=== PATIENT | male | born 2000 | race Two or more races ===

== ENCOUNTER 2024-02-02 12:24 | Emergency (ER) | payer MEDICAID, SELFPAY ==
--- NOTE | 2024-02-02 | XR_ITS ---
Exam: MRI knee without contrast, right complete Date and time of exam: February 02, 2024 at 1704 hrs. Indications: Injury to the knee today, patient felt a pop in the followed by instability pain unable to bear weight Technique: Multiple axial, coronal, and sagittal sections on the knee have been obtained. T2-Weighted sagittal, fat-suppressed images, TR 3,500, TE 62, T2 weighted coronal fat-saturated images, TR 3,500, TE 62 Proton density sagittal sections, TR 1800, TE 31. T-1 weighted coronal images, TR 524, TE 13.0 Findings: Medial meniscus anterior horn intact. Medial meniscus, body is intact. Posterior horn medial meniscus intact. Lateral meniscus anterior horn is intact Lateral meniscus, body is intact Posterior horn lateral meniscus is intact Anterior cruciate ligament high-grade sprain Posterior cruciate ligament appears intact. Knee effusion is significant. There is complete tear of the medial patellar retinaculum with lateral subluxation of the patella. There is a moderate strain of the patellar tendon There is fracture of Hoffa's fat pad Medial patellar facet demonstrates no thinning. Lateral patellar facet cartilage demonstrates no thinning. Trochlear cartilage demonstrates no thinning. Marrow signal abnormal, bone contusion anterior lateral femoral condyle likely related to more complete patellar dislocation. Medial collateral ligament appears intact. No meniscocapsular separation is seen. Illiotibial band and fibular collateral ligament are intact. Biceps femoris tendons appear intact. Medial femoral condylar articular cartilage demonstrates no thinning. Lateral femoral condylar articular cartilage demonstratesno thinning. Tibial plateau cartilage demonstrates no thinning. Impression: High-grade sprain anterior cruciate ligament Complete tear medial patellar retinaculum with lateral subluxation of the patella Traumatic fracture through Hoffa's fat pad, not a bone fracture Moderate strain patellar tendon
[2024-02-02 12:54] VITALS: BP 171/84; PULSE 75; RESP 18; TEMP 36.8; O2SAT 99; BMI 35.9
--- NOTE | 2024-02-02 13:02 | XR_ITS ---
Examination: Knee, right , 3 views Technique: Knee AP, lateral, oblique 3 views Date and time of exam: February 02, 2024 1305 hrs. Indications: Injury to the knee today, knee pain. Findings: No acute fracture No dislocation No foreign body Impression: No acute fracture
[2024-02-02] MEDS: IBUPROFEN TAB 600 MG TABLET PO (13:12)
[2024-02-02] MEDS: HYDROcodone/APAP 5/325 TABLET 1 TAB PO (13:12)
--- NOTE | 2024-02-02 14:37 | PD.EDLOWEX ---
Lower Extremity Injury RME/HPI General Chief Complaint: Extremity Injury, Lower Stated Complaint: RIGHT KNEE INJURY Time Seen by Provider: 02/02/24 12:25 Arrival date/time: 02/02/24 12:24 23-year-old male presents emergency department complaint of right knee pain while playing soccer Limitations: no limitations Related Data Previous Rx's ?Medication ?Instructions ?Recorded ibuprofen 600 mg tablet 600 mg PO QID #30 tabs 09/08/19 ibuprofen 800 mg tablet 800 mg PO TID PRN pain #30 tabs 02/02/24 Allergies Allergy/AdvReac Type Severity Reaction Status Date / Time NKA Allergy Unknown Uncoded 02/02/24 12:26 Review of Systems Review of Systems Systems Reviewed: All systems reviewed, normal except as documented Constitutional Constitutional: Reports system reviewed and no additional complaints, except as documented, Denies fever(s) and Denies headache(s) Eyes Eyes: Reports system reviewed and no additional complaints, except as documented and Denies blurry vision ENT Ears, Nose, Mouth, and Throat: Reports system reviewed and no additional complaints, except as documented, Denies headache(s), Denies nasal congestion and Denies nasal discharge Cardiovascular Cardiovascular: Reports system reviewed and no additional complaints, except as documented, Denies chest pain and Denies dyspnea Respiratory Respiratory: Reports system reviewed and no additional complaints, except as documented, Denies chest congestion, Denies cough and Denies dyspnea Gastrointestinal Gastrointestinal: Reports system reviewed and no additional complaints, except as documented and Denies abdominal pain Integumentary/Breasts Skin/Breast: Reports system reviewed and no additional complaints, except as documented and Denies rash Neurologic Neurologic: Reports system reviewed and no additional complaints, except as documented, Reports as per HPI and Denies headache(s) Past Medical History Past Medical History RESPIRATORY: Negative Respiratory Disorders Social History SMOKING STATUS: Current every day smoker ED Exam General Limitations: Present no limitations General appearance: Present alert and in no apparent distress Head Head exam: Present atraumatic Eye Eye exam: Present normal appearance, PERRL and EOMI ENT ENT exam: Present normal exam, normal oropharynx and mucous membranes moist Neck Neck exam: Present normal inspection, full ROM and trachea midline Chest Chest inspection: Present normal inspection and symmetric chest wall rise Respiratory Respiratory exam: Present normal lung sounds bilaterally Cardiovascular Cardiovascular exam: Present regular rate, normal rhythm and normal heart sounds Abdominal Exam Abdominal exam: Present soft and normal bowel sounds Extremities Exam Extremities exam: Present tenderness, normal capillary refill and joint swelling; Absent pedal edema or calf tenderness Back Exam Back exam: Present normal inspection and full ROM Neurological Exam Neurological exam: Present alert, oriented X3 and CN II-XII intact Psychiatric Psychiatric exam: Present normal affect and normal mood Skin Skin exam: Present warm, dry, intact and normal color Course Quality Measures none Orders Category Date Time Status Crutches .NOW Care 02/02/24 14:37 Completed MRI Screening NOW Care 02/02/24 14:42 Completed osmar wrap [Splint / Immobilizer] STAT Care 02/02/24 14:37 Completed MR knee RT wo con Stat Exams 02/02/24 Completed XR knee RT 3V Stat Exams 02/02/24 13:02 Completed HYDROcodone*/APAP 5/325 [[place] 5/325] Med 02/02/24 12:52 Discontinued 1 tab PO X1 ONE Ibuprofen Tab [Motrin Tab] Med 02/02/24 12:52 Discontinued 600 mg PO X1 ONE Vital Signs Vital signs: Vital Signs Temperature 98.3 F 02/02/24 12:54 Pulse Rate 75 02/02/24 12:54 Respiratory Rate 18 02/02/24 12:54 Blood Pressure 171/84 H 02/02/24 12:54 Pulse Oximetry (%) 99 02/02/24 12:54 Oxygen Delivery Method Room Air 02/02/24 12:54 O2 saturation 9 9% room air within normal limits Extremity Injury, Lower MDM Narrative MDM Narrative:: 23-year-old male presents emergency department complaint of right knee pain while playing soccer On exam patient has tenderness, swelling, decreased range of motion of the knee X-ray of the right knee obtained MRI of the knee obtained Patient given pain medication given crutches and Osmar wrap Patient instructed to bring his MRI to his primary care doctor for referral to a specialist for worsening symptoms to return immediately Patient data External records reviewed:: [facility] previous records Clinical information provided by:: patient Social determinants that could affect healthcare access:: none Patient has the following chronic illnesses:: None How is presenting disease/condition affected by chronic disease/condition?: no chronic disease Evaluation data The following diagnostics were reviewed and interpreted by me:: radiology exam(s) Lab and/or radiology exams considered but not ordered:: Radiology obtain Interpretation Summary: Reviewed by me Medications / Prescriptions Medications or Prescriptions considered but not ordered:: Given Medication administrations:: Medication Administration History Discontinued Medications Hydrocodone Bitart/Acetaminophen (Hydrocodone/Apap 5/325 Tablet) 1 tab PO X1 ONE Stop: 02/02/24 12:53 Last Admin: 02/02/24 13:12 Dose: 1 tab Documented By: OA Ibuprofen (Ibuprofen Tab 600 Mg Tablet) 600 mg PO X1 ONE Stop: 02/02/24 12:53 Last Admin: 02/02/24 13:12 Dose: 600 mg Documented By: OA Given Consultations Consultation(s) initiated? (list below): No Diagnosis Extremity Injury, Lower Differential Diagnosis: acute internal derangement of knee and other (Knee sprain, knee fracture) Most likely diagnosis given after review of the tests above:: Knee sprain Admission Indicated Admission indicated?: not indicated Admission Request Was there a request for admission?: No Disposition Plan Disposition Plan: Discharge Discharge Attestation Discharge Attestation: The patient and all family members were given an opportunity to ask questions and understood the discharge instructions. Discharge instructions specifically effects, indications for sooner follow up or return to the emergency department, and the expected course of current diagnosis. Patient condition: Stable Discharge Plan Plan Patient Disposition: HOME (Self Care) Disposition Comment: Stable Prescriptions/Referrals Prescriptions/Med Rec: New ibuprofen 800 mg tablet 800 mg PO TID PRN (Reason: pain) Qty: 30 0RF No Action ibuprofen 600 mg tablet 600 mg PO QID Qty: 30 0RF Referrals: No Primary/Family,Physician [Primary Care Provider] - In 1 week Problem List Clinical Impression: Acute internal derangement of knee Patient/Caregiver Discharge Instructions Education Materials: How Your Knee Works Additional Instructions: Please bring copy of your MRI report your primary care doctor request referral to orthopedics for worsening symptoms return immediately Print Language: Tamazight Stand Alone Forms: Deanna Award Info., Work/School Release, Patient Portal Info Letter PA/HARSHAD Supervising Physician IVAN/HARSHAD Supervising Physician: Dr. Orellana
== END 2024-02-02 20:35 | disposition home or self-care (01) ==
PROVIDERS: Emergency Provider Emergency Medicine
DX: S83.104A Unspecified dislocation of right knee, initial encounter (principal); X58.XXXA Exposure to other specified factors, initial encounter; Y93.66 Activity, soccer
CPT/HCPCS: 73562; 73721; 99284; A9270